=== PATIENT | male | born 1980 | race Caucasian/White ===

== ENCOUNTER 2019-03-03 08:46 | Emergency (ER) | payer MEDICAID, SELFPAY ==
[2019-03-03] VITALS (58 sets, daily range): BP systolic 107–168; BP diastolic 62–97; PULSE 42–94; RESP 12–57; TEMP 36.8–37.2; O2SAT 96–100
--- NOTE | 2019-03-03 09:11 | ED.GENADUL_ITS ---
Discharge Plan Disposition Patient Disposition: [facility] Discharge Details Chief Complaint: GenMedical Clinical Impression: Chest pain, Headache, Elevated troponin Primary Care Provider: None,None ED Provider: Dl Fonseca Home Meds and New Rx's Prescriptions: No Action No Known Home Meds RF: 0 Medical Decision Making This is a nontoxic-appearing 38-year-old male presenting to the emergency department with the above chief complaint. Symptoms seem to have started immediately after he lacerated his right index finger. Finger appears well intact and laceration is very superficial. Outside of laceration repair window at this time. Shortly after my evaluation patient developed nausea and vomiting. IV established and labs sent. He is complaining of intermittent chest pain therefore ACS work-up warranted. He is PERC negative at this time with a heart rate of 76, no calf tenderness, no cancer or VTE history. No recent surgeries or prolonged immobilization. 11:10 Patient's work-up so far has revealed an elevated troponin at 0.07. He does not endorse any chest pain at this time. He did have several bouts of chest pain earlier this morning and last night. EKG shows frequent PVCs concerning for bigeminy. No ST elevation and is negative for scar Bosa criteria. He does have a slightly elevated white blood cell count at 13,000. D-dimer is undetectable however with his shortness of breath symptoms and slightly elevated troponin I feel it necessary to proceed with CTA for PE rule out. Dissection also possibility although unlikely with his lack of chest pain symptoms and radiation. Chest x-ray is clean and shows no evidence of pneumonia or widened mediastinum. [id number] ultrasound today demonstrates adequate LV to RV ratio with no evidence of RV strain. No wall motion abnormalities noted. Lung windows demonstrate good bilateral slide without any evidence of B-lines. Patient's imaging today all negative for acute pathology. He continues to have intermittent bouts of severe substernal chest pain along with a headache. His repeat troponin is 0.07 and his EKG now shows questionable U waves in V3 and V4. No ST elevation noted. There is also evidence of hyperacute T waves in V3 V4. I [place] [facility] [place] EKGs as well. He agrees that with the ongoing chest discomfort and persistently elevated troponin the patient would benefit from a cardiology consultation. Patient has been accepted to the cardiology service with Dr Marie as the accepting physician. No recommendations for heparinization at this time. ECG Data Interpretation: Sinus rhythm with ventricular bigeminy. Negative for scar Bosa criteria with PVCs. No evidence of ST elevation or T wave inversion HPI General Date/Time Provider Initiated Documentation: 03/03/19 08:51 . HPI Narrative: Patient is a 38-year-old male with no significant past medical history who presents to the emergency department with generalized complaints of headache, nausea, vomiting with cough and shortness of breath. He reports intermittent chest pain since yesterday evening. He states that his symptoms started immediately after he lacerated his right index finger while working on a car with his [id number]. He developed severe lightheadedness and a wave of nausea after he lacerated his finger and is not felt back to his baseline since. He denies any fevers. Is been taking ibuprofen for his headache with little to no relief. No neck pain or stiffness. No rashes noted. He denies any shortness of breath or chest pain while lying in bed. He is a smoker and admits to a new nonproductive cough. Related Data Home Medications Medication Instructions Recorded Confirmed Unknown [No Known Home Meds] 03/03/19 03/03/19 Allergies Allergy/AdvReac Type Severity Reaction Status Date / Time No Known Allergies Allergy Unverified 03/03/19 08:56 General Stated Complaint: GenMedical VIPIN: 3 Review of Systems Constitutional Denies system reviewed and no additional complaints, except as docu, Denies anorexia, Reports chills, Denies fatigue, Denies fever(s), Reports headache(s), Denies lethargy, Reports night sweats and Denies weight loss ENT Denies vertigo, Denies dizziness, Reports headache(s) and Denies neck pain Cardiovascular Reports chest pain, Denies chest pain with activity, Denies syncope, Denies pedal edema, Denies edema, Denies leg ulcers, Denies leg edema, Reports lightheadedness, Denies palpitations, Denies dyspnea, Denies dyspnea on exertion and Denies orthopnea Respiratory Denies chest congestion, Denies hemoptysis, Reports pain with cough, Denies dyspnea, Denies dyspnea on exertion and Denies wheezing Gastrointestinal Denies abdominal pain, Denies diarrhea, Reports nausea and Reports vomiting Genitourinary Denies dysuria and Denies flank pain Musculoskeletal Denies muscle cramps, Denies neck pain, Denies numbness and Denies stiffness Integumentary/Breasts Denies erythema and Denies rash Neurologic Denies vertigo, Denies dizziness, Denies syncope, Reports headache(s) and Denies numbness Endocrine Denies fatigue and Denies palpitations Allergic/Immunologic Denies wheezing [facility] Social History Smoking/Tobacco Use Status: Current every day Tobacco Type: cigarettes Alcohol Intake: never Drug use: Occasionally Substance use type: marijuana Do you feel safe at home: Yes Do you feel safe in your relationship?: Yes Exam Const General: cooperative Orientation: alert and oriented x3 HENMT Head: normal to inspection Face and sinus: normal facial exam Mouth: oral mucosae normal Teeth and gingiva: poor dentition Throat: posterior oropharynx normal Eyes General: appearance normal, both eyes and all related structures Neck Neck: normal visual inspection, full ROM, no lymphadenopathy and no meningeal signs Chest Chest: normal inspection of the chest and normal palpation of entire chest wall Resp Effort & Inspection: normal respiratory effort Auscultation: clear to auscultation bilaterally Cardio Jugular venous pressure: no JVD Palpation: normal PMI Rate: regular rate Rhythm: abnormal rhythm with ectopic beats Heart Sounds: S1 normal and S2 normal Pulses: normal peripheral pulses GI Inspection: normal to inspection Palpation: soft Back/Spine/Pelvis Back: no CVA tenderness Skin General skin exam: no rashes or lesions noted Neuro General: alert, awake and oriented x3 Cranial Nerves: CN's II-XI intact bilaterally Speech: speech normal Gait: normal gait Extrem General: no clubbing, cyanosis or edema, no pedal edema and no calf tenderness Right upper extremity: hand Details: normal capillary refill, laceration (superficial laceration to the medial border of the right distal 2nd phalanx) and other Course Vital Signs Temperature 36.8 C 03/03/19 08:52 Pulse 72 03/03/19 08:52 Respiratory Rate 18 03/03/19 08:52 Blood Pressure 154/77 H 03/03/19 08:52 Pulse Oximetry 99 03/03/19 08:52 Temperature 36.8 C 03/03/19 08:52 Temperature Source Oral 03/03/19 08:52 Pulse 72 03/03/19 08:52 Respiratory Rate 18 03/03/19 08:59 Respiratory Effort Non-Labored 03/03/19 08:59 Respiratory Depth Normal 03/03/19 08:59 Respiratory Pattern Normal 03/03/19 08:59 Blood Pressure 154/77 H 03/03/19 08:52 Blood Pressure Position Supine 03/03/19 08:52 Pulse Oximetry 99 03/03/19 08:52 Oxygen Delivery Method Room Air 03/03/19 08:52 Oxygen Flow Rate 0 03/03/19 08:52 Pain Level 10 03/03/19 08:52
[2019-03-03] MEDS: Ondansetron 4 MG/2 ML VIAL IVP (09:31)
[2019-03-03] MEDS: Normal Saline 1,000 ML 1000 ML IV (09:31)
[2019-03-03] MEDS: Acetaminophen 500 MG TAB 1000 MG PO (09:32)
[2019-03-03] MEDS: MAGNESIUM SULFATE 2 GM/50 ML BAG IVPB (09:39)
[2019-03-03 09:43] LABS: Abs Immature Grans 0.03 k/cumm (0.0-0.09); Absolute Basophil Count 0.03 k/cumm (0.0-0.2); Absolute Eosinophil Count 0.07 k/cumm (0.0-0.7); Basophils % 0.2; Eosinophils % 0.5; HCT 46.5 % (40.0-50.0); HGB 16.5 g/dL (13.5-17.5); Immature Grans % 0.2; Mean Corp. HGB Concentration 35.5 g/dL (32.0-36.0); Mean Corpuscular Hemoglobin 31.7 pg (27.0-33.0); Mean Corpuscular Volume 89.3 fL (80-95); Mean Platelet Volume 9.9 fL (8.0-11.0); Monocytes % 6.5; Neutrophils % 81.6; Platelet Count 292 x1000/uL (130-400); RBC 5.21 m/cumm (4.50-6.00); RBC Distribution Width 11.9 % (11.8-14.1); White Blood Cell Count 13.85 k/cumm (4.4-10.8)
[2019-03-03 09:46] LABS: Absolute Lymphocyte Count 1.52 k/cumm (1.2-3.4)
--- NOTE | 2019-03-03 09:56 | DI.RAD_ITS ---
SYMPTOM/DIAGNOSIS: VOMITING, COUGH, CHEST JPAIN PORTABLE CHEST: 03/03 The heart is normal in size. The lungs are clear. The mediastinal structures and pleura appear intact. CONCLUSION: Normal portable chest.
[2019-03-03 10:01] LABS: ALT 25 U/L (12-78); AST 13 U/L (15-37); Albumin 4.4 g/dL (3.4-5.0); Alkaline Phosphatase 65 U/L (46-116); Anion Gap 13.1 mmol/L (3-11); BUN 13 mg/dL (7-18); Bilirubin, Total 0.4 mg/dL (0.2-1.0); CO2 22.9 mmol/L (21.0-32.0); CREATININE 1.06 mg/dL (0.70-1.30); Calcium 9.5 mg/dL (8.5-10.1); Chloride 105 mmol/L (98-107); Glucose 118 mg/dL (70-100); Magnesium 1.9 mg/dL (1.8-2.4); Potassium 3.5 mmol/L (3.5-5.1); Sodium 141 mmol/L (136-145)
[2019-03-03 10:03] LABS: Troponin I 0.07 ng/mL (0.00-0.06)
[2019-03-03] MEDS: Normal Saline 1,000 ML 125 ML IV (10:10)
--- NOTE | 2019-03-03 10:14 | DI.VRAD_ITS ---
EXAM: XR Chest, 1 View EXAM DATE/TIME: 03/03/2019 9:57 AM CLINICAL HISTORY: 38 years old, male; Cough and other: Vomitting; Chest pain TECHNIQUE: Imaging protocol: XR of the chest, 1 view. COMPARISON: No relevant prior studies available. FINDINGS: Lungs: Moderately hyperaerated lungs consistent with deep inspiratory effort vs significant reactive airway disease. Pleural space: Unremarkable. No pleural effusion. No pneumothorax. Heart/Mediastinum: Unremarkable. No cardiomegaly. Bones/joints: Unremarkable. IMPRESSION: Moderately hyperaerated lungs consistent with deep inspiratory effort vs significant reactive airway disease. Dictated and Authenticated by: Tiago Ventura MD. Ordering:KELLEY Lizama MD
[2019-03-03 10:33] LABS: NT-proBNP 485 pg/mL
[2019-03-03 10:39] LABS: D-Dimer 122 ng/mlFEU (<500)
[2019-03-03 10:40] LABS: INR 1.1 (0.9-1.1); PTT Activated 26.4 sec (21.0-31.4); Prothrombin Time 10.9 sec (9.3-11.0)
--- NOTE | 2019-03-03 10:48 | DI.CT_ITS ---
SYMPTOM/DIAGNOSIS: SUBSTERNAL CHEST PAIN, SOB, ELEVATED TROP CHEST CTA: 03/03 CT angiography was performed with multi slice acquisition and multi planar and 3D reconstruction. CT angiography of the chest was performed with intravenous infusion of cc's of Omnipaque 350. Images obtained through the upper abdomen are unremarkable. There is no evidence of pulmonary embolic disease. There is no evidence of thoracic aortic dissection or aneurysm. No mediastinal or hilar adenopathy seen. Tracheobronchial tree appears intact. No pleural effusion or pulmonary consolidation. CONCLUSION: Normal CTA chest.
--- NOTE | 2019-03-03 11:45 | DI.CT_ITS ---
SYMPTOM/DIAGNOSIS: WORSENING HEADACHE, VOMITING, ELEVATED TROP. CRANIAL CT (WITHOUT CONTRAST): 03/[address] was performed. The ventricular system is normal in appearance. There is no evidence of an intracranial mass lesion. There is no evidence of a subdural or epidural hematoma. No focal areas of decreased attenuation are seen. CONCLUSION: Normal noncontrast Cranial CT. CERVICAL CRANIAL CTA: 03/03 CT angiography was performed with multi slice acquisition and multi planar and 3D reconstruction. CT angiography of the neck and head was performed with bolus infusion of 100 cc's of Omnipaque 350. The visualized aortic arch and great vessels are unremarkable. There is normal appearance of the common carotid arteries bilaterally with no evidence of stenosis or aneurysm. Internal and external carotid arteries appear normal bilaterally with no evidence of stenosis or aneurysm formation. No cervical mass or adenopathy is seen. Tracheal laryngeal structures appear intact. Intracranial internal carotid arteries appear normal bilaterally with no evidence of aneurysm or stenosis. Anterior cerebral, middle cerebral and posterior cerebral arteries and major branches are unremarkable bilaterally with no evidence of aneurysm or stenosis. CONCLUSION: Negative CT angiography neck and head.
[2019-03-03] MEDS: Omnipaque 350 MG/ML 100 ML BTL IJ ×2 (12:23→12:24)
[2019-03-03] MEDS: Omnipaque 350 MG/ML 50 ML BTL IJ (12:25)
--- NOTE | 2019-03-03 12:29 | DI.VRAD_ITS ---
EXAM: CT Angiography Head Without And With Contrast EXAM DATE/TIME: 03/03/2019 11:48 AM CLINICAL HISTORY: 38 years old, male; Pain; Other: Vomitting, elevated trop; Headache TECHNIQUE: Imaging protocol: Computed tomographic angiography images of the head without and with intravenous contrast using CT angiography protocol. Coronal and sagittal reformatted images were created and reviewed. 3 mm axial, coronal and sagittal reconstructions were obtained. 7 mm coronal reconstructions were obtained. 3D rendering: MIP reconstructed images were created and reviewed. Radiation optimization: All CT scans at this facility use at least one of these dose optimization techniques: automated exposure control; mA and/or kV adjustment per patient size (includes targeted exams where dose is matched to clinical indication); or iterative reconstruction. COMPARISON: No relevant prior studies available. FINDINGS: Right internal carotid artery: Unremarkable. Intracranial segment is patent with no significant stenosis. No aneurysm. Right anterior cerebral artery: Unremarkable. No occlusion or significant stenosis. No aneurysm. Right middle cerebral artery: Unremarkable. No occlusion or significant stenosis. No aneurysm. Right posterior cerebral artery: Unremarkable. No occlusion or significant stenosis. No aneurysm. Right vertebral artery: Dominant right vertebral artery with patent left vertebral artery. Left internal carotid artery: Unremarkable. Intracranial segment is patent with no significant stenosis. No aneurysm. Left anterior cerebral artery: Unremarkable. No occlusion or significant stenosis. No aneurysm. Left middle cerebral artery: Unremarkable. No occlusion or significant stenosis. No aneurysm. Left posterior cerebral artery: Unremarkable. No occlusion or significant stenosis. No aneurysm. Left vertebral artery: Unremarkable. No occlusion or significant stenosis. No aneurysm. Basilar artery: Unremarkable. No occlusion or significant stenosis. No aneurysm. Other vasculature: No large vessel occlusion. HEAD: Brain: Unremarkable. No hemorrhage. No significant white matter disease. No edema. Ventricles: Normal. No ventriculomegaly. Bones/joints: Unremarkable. No acute fracture. Sinuses: Visualized sinuses are normal. No fluid levels. Mastoid air cells: Visualized mastoids are normal. No mastoid effusion. Soft tissues: Unremarkable. IMPRESSION: No large vessel occlusion. EXAM: CT Angiography Neck With Contrast EXAM DATE/TIME: 03/03/2019 11:48 AM CLINICAL HISTORY: 38 years old, male; Pain; Other: Vomitting, elevated trop; Headache TECHNIQUE: Imaging protocol: Axial computed tomographic angiography images of the neck with intravenous contrast using CT angiography protocol. Coronal and sagittal reformatted images were created and reviewed. 3D rendering: MIP reconstructed images were created and reviewed. COMPARISON: No relevant prior studies available. FINDINGS: VASCULATURE: Right common carotid artery: Unremarkable. No stenosis. No dissection or occlusion. Right internal carotid artery: No ICA stenosis by NASCET/SRU criteria. Right external carotid artery: Unremarkable. No occlusion or stenosis of the origin. Right vertebral artery: Dominant right vertebral artery with patent left vertebral artery. Left common carotid artery: Unremarkable. No stenosis. No dissection or occlusion. Left internal carotid artery: Unremarkable extracranial segment. No stenosis. No dissection or occlusion. Left external carotid artery: Unremarkable. No occlusion or stenosis of the origin. Left vertebral artery: Unremarkable. No stenosis. No dissection or occlusion. NECK: Bones/joints: No acute fracture. Soft tissues: Normal. No significant soft tissue swelling. IMPRESSION: 1. Dominant right vertebral artery with patent left vertebral artery. 2. No ICA stenosis by NASCET/SRU criteria. COMMENT: Reference per NASCET criteria for degree of stenosis: Mild: less than 50% stenosis. Moderate: 50-69% stenosis. Severe: 70-94% stenosis. Near occlusion: 95-99% stenosis. Dictated and Authenticated by: Tiago Ventura MD. Ordering:KELLEY Lizama MD
--- NOTE | 2019-03-03 12:31 | DI.VRAD_ITS ---
EXAM: CT Angiography Chest With Contrast EXAM DATE/TIME: 03/03/2019 10:50 AM CLINICAL HISTORY: 38 years old, male; Pain and abnormal findings; Abnormal diagnostic tests; Other: Elevated troponin; Shortness of breath; Sternal or substernal pain TECHNIQUE: Imaging protocol: Axial computed tomographic angiography images of the chest with intravenous contrast using CT angiography protocol. Coronal and sagittal reformatted images were created and reviewed. 3D rendering: MIP reconstructed images were created and reviewed. Contrast material: OMNIPAQUE;Contrast volume: 60 ml;Contrast route: LAC 18G IV; COMPARISON: SC XR PORTABLE CHEST AP 03/03/2019 9:57 AM FINDINGS: Pulmonary arteries: No pulmonary embolus or aortic dissection. Aorta: Unremarkable. No aortic aneurysm. No aortic dissection. Lungs: Unremarkable. No consolidation. No masses. Pleural space: Unremarkable. No pneumothorax. No pleural effusion. Heart: Unremarkable. No cardiomegaly. No pericardial effusion. Lymph nodes: Unremarkable. No enlarged lymph nodes. Bones/joints: Unremarkable. No acute fracture. Soft tissues: Unremarkable. Other findings: Examination is limited secondary to motion artifact. IMPRESSION: 1. Examination is limited secondary to motion artifact. 2. No pulmonary embolus or aortic dissection. Dictated and Authenticated by: Tiago Ventura MD. Ordering:KELLEY Lizama MD
[2019-03-03 13:22] LABS: Troponin I 0.07 ng/mL (0.00-0.06)
[2019-03-05 11:00] LABS: Lyme Ab w Rflx to Lyme Confirm Negative
[2019-03-07 01:09] LABS: Anaplasma phagocytophilum Negative (Negative); B. miyamotoi PCR Negative (Negative); Babesia divergens/MO-1 Negative (Negative); Babesia duncani Negative (Negative); Babesia microti Negative (Negative); Ehrlichia chaffeensis Negative (Negative); Ehrlichia ewingii/canis Negative (Negative); Ehrlichia muris eauclairensis Negative (Negative)
== END 2019-03-03 15:36 | disposition short-term general hospital (02) ==
PROVIDERS: Emergency Provider Physician Assistant
DX: R07.9 Chest pain, unspecified (principal); R51 Headache; R77.8 Other specified abnormalities of plasma proteins; F17.210 Nicotine dependence, cigarettes, uncomplicated
CPT/HCPCS: 36415; 70496; 70498; 71275; 80053; 87798; 93005; 96361; 96365; 96366; 96375; 96376; 99285; 71045; 83735; 83880; 84484; 85025; 85379; 85610; 85730; 86618; 93010; J2405; J3490; Q9967

== ENCOUNTER 2019-03-06 07:17 | Emergency (ER) | payer MEDICAID, SELFPAY ==
[2019-03-06 07:29] VITALS: BP 139/103; PULSE 65; RESP 16; TEMP 36.7; O2SAT 97
[2019-03-06] MEDS: Normal Saline 1,000 ML 1000 ML IV (07:45)
--- NOTE | 2019-03-06 07:50 | W.ED.GENAD ---
Discharge Plan Disposition Patient Disposition: HOME Condition: Improving Discharge Details Chief Complaint: Headache Clinical Impression: Headache Primary Care Provider: None,None ED Provider: Miriam Garcia Home Meds and New Rx's Prescriptions: Continued metoprolol succinate 25 mg Tablet Extended Release 24 Hr 25 mg PO DAILY RF: 0 tizanidine 2 mg Capsule 2 mg TID RF: 0 Discharge Instructions Instructions: General Headache (ED) Additional Instructions: Encourage hydration. Please use Tizanidine as prescribed for headache. You may add Tylenol and/or Ibuprofen to this. Bloodwork and imaging are reassuring here today. You have a follow up appointment with neurology at [facility] regarding your headaches on March 12 at 2:15PM, go to desk 3C. Appointment is with Dr. Pulliam. If you develop fevers/chills, increased pain, weakness, altered sensation, visual changes or other new/worsening symptos please seek care urgently once again. Discharge Data Discharge Date/Time-TO BE ENTERED AT DEPARTURE: 03/06/19 11:41 Medical Decision Making Patient is a 38 year old male presenting today with c/c of headache that woke him from sleep this morning. Pain has been waxing and waning since onset. On exam, he appears nontoxic. Speaking in full sentences. Neuro exam is intact. He is intermittently grimacing and states that pain is shooting up. Has pain over the right rastafarian on palpation. Denies jaw claudication with eating but states that he is having pain over this area at this time. Feels that GALE came on suddenly. Feels similar to previous GALE but more severe than typical. Plan for CT as I am concerned for possible bleed, will obtain labs, hydrate and treat with dexamethasone, compazine, toradol, benadryl. Patient was seen recently for similar complaint. At that time, patient was noted to have an elevated troponin which is obtained to the patient was endorsing some intermittent chest discomfort. EKG was concerning for bigeminy but no ST elevations are noted. Patient had leukocytosis. CTA was obtained to rule out PE. Patient was transferred to [facility] cardiology consultation. While there, patient underwent stress echo, patient was able to reach the maximum heart rate and symptoms did not change with this exertion. He was endorsing this headache that he is currently endorsing now. Conclusion of the stress echo is no evidence for ischemia and a diagnostic level of stress. At that time, patient was also endorsing severe headache similar to what he is experiencing at this time. Notes that at the time of discharge the patient's elevated troponin was secondary to a hypertensive emergency. Patient was started on metoprolol, reports his been taking his medications as prescribed. 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 Began on tizanidine and advised that after the initial 3 days he would take this as needed. Labs significant for WBC of 11.17, this is downtrending from [address] reviewed by radiologist as normal. Discussed with patient. He is feeling improved after IV Dexamethason, hydration, compazine, benadryl, toradol. Feels ready for discharge at this time. Cardiology, who was the admitting team at [facility] recently, recommended f/u with neurology in 2 weeks. Called neurology to ensure f/u appointment and get time for the patient. He is hydrating. Will go home ot rest. Will continue with Tizanidine as previously prescribed. He was given strict return precautions. All questions and concerns were addressed, he is in agreement iwth this plan. HPI General Mode of arrival: ambulatory. Date/Time Provider Initiated Documentation: 03/06/19 07:46. Limitations to Documentation: no limitations. Information obtained by: patient, family (Accompanied by significant other) and RN notes reviewed. HPI Narrative: Patient is a 38-year-old male presenting today with chief complaint of headache. He reports that headache began at 0330 this morning waking him from sleep. Reports that headache can wax and wane, indicates the right rastafarian is area of maximal discomfort. However, he reports the headache began initially at the base of his head, and his neck and then radiated upwards and around the head. Denies any fevers but did state that he felt sweaty upon awakening this morning. Took his Tizanidine a previously prescribed by neurology. He reports a headache is been waxing and waning since onset this morning. States that this is similar to GALE he had while recently at [facility] but that the pain is increased. Denies neck pain. No rash. Denies CP or SOB. Related Data Home Medications Medication Instructions Recorded Confirmed metoprolol succinate 25 mg PO DAILY 03/06/19 03/06/19 tizanidine 2 mg TID 03/06/19 03/06/19 Allergies Allergy/AdvReac Type Severity Reaction Status Date / Time No Known Allergies Allergy Unverified 03/03/19 08:56 General Stated Complaint: Headache VIPIN: 3 Review of Systems Constitutional Reports as per HPI, Denies chills, Reports fatigue, Denies fever(s), Denies frequent falls, Reports headache(s), Denies snoring and Denies weakness Eyes Reports as per HPI, Denies blurry vision, Denies change in vision and Reports photophobia ENT Denies vertigo, Reports headache(s) and Denies neck pain Cardiovascular Reports as per HPI, Denies chest pain, Denies lightheadedness, Denies radiating jaw, neck or arm pain, Denies dyspnea and Denies dyspnea on exertion Respiratory Reports as per HPI, Denies chest congestion, Denies cough, Denies dyspnea, Denies dyspnea on exertion, Denies snoring, Denies stridor and Denies wheezing Gastrointestinal Reports as per HPI, Denies abdominal pain, Denies change in bowel habits, Denies nausea and Denies vomiting Genitourinary Reports system reviewed and no additional complaints, except as docu (denies change in urinary habits) Musculoskeletal Reports as per HPI, Denies back pain, Denies myalgias, Denies muscle cramps, Denies neck pain and Denies numbness Integumentary/Breasts Reports as per HPI and Denies rash Neurologic Reports as per HPI, Denies abnormal movements, Denies abnormal speech, Denies behavioral changes, Denies confusion, Denies vertigo, Denies frequent falls, Reports headache(s), Denies focal weakness, Denies numbness, Denies sensory deficit and Denies weakness Psychiatric Denies behavioral changes and Denies confusion Endocrine Reports fatigue Allergic/Immunologic Denies wheezing [facility] Social History Smoking/Tobacco Use Status: Current every day Tobacco Type: cigarettes Alcohol Intake: never Drug use: Occasionally Substance use type: marijuana Do you feel safe at home: Yes Do you feel safe in your relationship?: Yes Exam Const General: cooperative, healthy appearing, uncomfortable, no acute distress, well developed and well groomed Nutritional Appearance: average body habitus and well nourished Orientation: alert, awake and oriented x3 HENMT Head: normal to inspection, no palpable skull fracture, normocephalic and atraumatic Ears: hearing grossly normal bilaterally, external ears normal and TM's normal bilaterally General nose exam: external nose normal Mouth: oral mucosae normal and moist mucous membranes Throat: posterior oropharynx normal Eyes General: appearance normal, both eyes and all related structures Alignment and Position: alignment normal Periorbital: periorbital findings normal Eyelids: eyelids normal Sclera: sclerae normal Cornea: corneas normal Pupils: PERRL EOM: EOM intact bilaterally Neck Neck: normal visual inspection, full ROM, no lymphadenopathy and no meningeal signs Resp Effort & Inspection: normal respiratory effort, able to speak in complete sentences and no respiratory distress Auscultation: clear to auscultation bilaterally, no rales, no rhonchi and no wheezes Cardio Rate: regular rate Rhythm: regular rhythm Heart Sounds: S1 normal and S2 normal GI Inspection: normal to inspection and non-distended Palpation: soft, no hepatosplenomegaly, not firm, no guarding, not rigid and nontender Percussion: normal to percussion Auscultation: normal bowel sounds Back/Spine/Pelvis Cervical Spine: normal cervical lordosis and cervical ROM normal Skin General skin exam: no rashes or lesions noted Neuro General: alert, awake and oriented x3 Cranial Nerves: CN's II-XI intact bilaterally Cognition: normal cognition Speech: speech normal Gait: normal gait Motor: muscle tone normal throughout, strength 5/5 throughout, no pronator drift, no movement abnormalities noted and no fasciculations Sensory Exam: no sensory deficits noted Coordination: [id number] test normal and [id number] test normal Extrem General: normal to inspection, normal capillary refill, no pedal edema and no calf tenderness Psych Appearance: grossly normal and well kempt Mental Status: mental status grossly normal Speech and Movement: speech and movement normal Course Vital Signs Temperature 36.7 C 03/06/19 07:29 Pulse 65 03/06/19 07:29 Respiratory Rate 16 03/06/19 07:29 Blood Pressure 139/103 H 03/06/19 07:29 Pulse Oximetry 97 03/06/19 07:29 Temperature 36.7 C 03/06/19 07:29 Temperature Source Skin 03/06/19 07:29 Pulse 65 03/06/19 07:29 Respiratory Rate 16 03/06/19 07:29 Blood Pressure 139/103 H 03/06/19 07:29 Blood Pressure Position Sitting 03/06/19 07:29 Pulse Oximetry 97 03/06/19 07:29 Oxygen Delivery Method Room Air 03/06/19 07:29 Oxygen Flow Rate 0 03/06/19 07:29
[2019-03-06 07:55] LABS: Abs Immature Grans 0.02 k/cumm (0.0-0.09); Absolute Basophil Count 0.04 k/cumm (0.0-0.2); Absolute Eosinophil Count 0.09 k/cumm (0.0-0.7); Absolute Lymphocyte Count 1.64 k/cumm (1.2-3.4); Absolute Monocyte Count 0.75 k/cumm (0.11-0.7); Basophils % 0.4; Eosinophils % 0.8; HCT 46.7 % (40.0-50.0); HGB 16.3 g/dL (13.5-17.5); Immature Grans % 0.2; Lymphocytes % 14.7; Mean Corp. HGB Concentration 34.9 g/dL (32.0-36.0); Mean Corpuscular Hemoglobin 31.2 pg (27.0-33.0); Mean Corpuscular Volume 89.3 fL (80-95); Mean Platelet Volume 9.7 fL (8.0-11.0); Monocytes % 6.7; Neutrophils % 77.2; Platelet Count 307 x1000/uL (130-400); RBC 5.23 m/cumm (4.50-6.00); White Blood Cell Count 11.17 k/cumm (4.4-10.8)
[2019-03-06 07:56] LABS: Absolute Neutrophil Count 8.62 k/cumm (1.2-6.7)
[2019-03-06] MEDS: Dexamethasone 10 MG/ML VIAL IVP (08:12)
[2019-03-06] MEDS: Ketorolac 30 MG/ML VIAL IVP (08:12)
[2019-03-06] MEDS: diphenhydrAMINE 50 MG/ML VIAL 25 MG IVP (08:12)
[2019-03-06] MEDS: Prochlorperazine 10 MG/2 ML VIAL IVP (08:12)
[2019-03-06 08:14] LABS: ALT 20 U/L (12-78); AST 13 U/L (15-37); Albumin 4.5 g/dL (3.4-5.0); Alkaline Phosphatase 60 U/L (46-116); Anion Gap 13.3 mmol/L (3-11); BUN 16 mg/dL (7-18); Bilirubin, Total 0.2 mg/dL (0.2-1.0); CO2 23.7 mmol/L (21.0-32.0); CREATININE 1.27 mg/dL (0.70-1.30); Calcium 9.6 mg/dL (8.5-10.1); Chloride 101 mmol/L (98-107); Glucose 152 mg/dL (70-100); Potassium 4.2 mmol/L (3.5-5.1); Sodium 138 mmol/L (136-145); Total Protein 8.2 g/dL (6.4-8.2)
[2019-03-06 08:21] LABS: INR 1.1 (0.9-1.1); Prothrombin Time 10.7 sec (9.3-11.0)
[2019-03-06 09:24] LABS: C-Reactive Protein < 0.05 mg/dL (0.0-0.3)
--- NOTE | 2019-03-06 10:22 | DI.CT_ITS ---
SYMPTOMS/DIAGNOSIS: HEADACHE NONCONTRAST HEAD CT: No intracranial hemorrhage, mass or infarct is seen. The ventricles are normal in size. There is a hypoplastic right maxillary sinus which is opacified. IMPRESSION: Right maxillary sinus disease. Otherwise negative.
[2019-03-06 11:20] VITALS: BP 136/88; PULSE 51; RESP 14; TEMP 37.1; O2SAT 99
[2019-03-06] MEDS: Normal Saline Flush 10 ML SYR IVP (11:51)
== END 2019-03-06 11:41 | disposition home or self-care (01) ==
PROVIDERS: Emergency Provider Physician Assistant
DX: R51 Headache (principal)
CPT/HCPCS: 36415; 80053; 96361; 96374; 96375; 99284; 70450; 85025; 85610; 86140; 99285; J0780; J1100; J1200; J1885

== ENCOUNTER 2023-05-22 14:59 | Emergency (ER) | payer OTHER, MEDICAID, SELFPAY ==
--- NOTE | 2023-05-22 15:00 | DI.RAD_ITS ---
Exam(s) XR KNEE RT 3V AP,LAT,STEPH EXAM: XR KNEE RT 3V AP,LAT,STEPH CLINICAL HISTORY: R medial knee, had metal FB, removed prior to arri. TECHNIQUE: 2D digital imaging was performed of the right knee. Three views obtained. AP, lateral an d PA tunnel views were obtained. COMPARISON: No exams were available for comparison FINDINGS: BONES: No acute fracture is present. No bony destructive lesion is seen. JOINTS: The knee is normally aligned. No joint effusion is seen. SOFT TISSUE: Normal. No radiopaque foreign body. IMPRESSION: Unremarkable radiographs of the right knee. No radiopaque foreign body. DATA REPOSITORY: RADIATION DOSE DELIVERED:
--- NOTE | 2023-05-22 15:05 | W.ED.GENAD ---
Discharge Plan Disposition Patient Disposition: Home Discharge Details Clinical Impression: Puncture wound of right lower extremity Primary Care Provider: None,None ED Provider: Nikolas Draper Home Meds and New Rx's Prescriptions: New cephalexin 500 mg tablet 500 mg PO QID 3 Days Qty: 12 0RF Continued metoprolol succinate 25 mg Tablet Extended Release 24 Hr 25 mg PO DAILY Hold Instructions: Pt Stopped/Never Started tizanidine 2 mg Capsule 2 mg TID Hold Instructions: Pt Stopped/Never Started Discharge Instructions Instructions: Cephalexin (By mouth), Puncture Wound (ED) Additional Instructions: You were seen in the emergency department for your right knee puncture wound. This did not appear to puncture the joint capsule and you have no bony involvement on your x-ray. Your ligaments appear stable on physical exam. Please treat aggressively with adequate dosing of Tylenol and ibuprofen as well as rest, ice, compression and elevation. Please use therapeutic dosing of Tylenol (acetamenophen) & Advil (ibuprofen) in an alternating fashion as follows: Take 1000mg of Tylenol every 6 hours without missing doses- that is 4 times per day. Senior Living in between the Tylenol dosings, take 400-600mg of Advil also on a 6 hour schedule, that is also 4 times per day. The daily maximum dosing of Tylenol is 4000mg, and the daily maximum dosing of Advil is 2400mg. This is safe to do for weeks. Please note that some common cold medications & prescription pain medications may contain acetamenophen and you need to read OTC drug labels and factor that in to maximum daily dosings. We have provided you crutches to aid in ambulation as well as aggressively cleaned your puncture wounds and provided you with some bandages. I have sent prescriptions to the [place] [facility] in [place] for 3 days of prophylactic antibiotics. Please follow-up with orthopedics for pain persisting past 5 to 7 days for further evaluation of the ligamentous structures, return to the emergency department for any significant increase in redness to the area with drainage of pus, inability to ambulate, fever or nausea. Referrals: [facility] [Provider Group] Medical Decision Making This dictation utilizes [id number] dictation software and may contain unedited grammatical errors. 42 y/o M presents to ED today with a chief complaint of R medial knee puncture wound from a framing nail gun. Onset and characteristics include three pinpoint punctures from the nail entering and exiting the skin of his medial knee, appears to have been a glancing blow. Patient has relevant history non-contributory. Family and social history: non-contributory. Pertinent exam findings / vital signs include three pinpoint superficial puncture wounds to medial aspect of R knee without serous drainage of synovial fluid, able to weight-bear, injury to non-dominant extremity. Differential / pathologies of concern include perforation of joint space, need for tetanus prophylaxis, rupture of MCL, fracture of bone of knee. Diagnostic studies of: -XR R Knee. -shows no radiopaque FB, no fracture or bony involvement Interventions of: -Aggressive cleaning of his small puncture wounds, provided crutches as the patient has pain with weightbearing, updated Tdap status. Findings not consistent with active infection of recent puncture wounds, not consistent with joint capsule perforation without serous synovial drainage, not consistent with MCL injury with no ligamentous laxity. Disposition of Puncture Wound of Right Lower Extremity. Assessment/Plan: Counseled the patient on therapeutic dosing of Tylenol and ibuprofen for pain as well as RICE therapy and provided him a prophylactic course of Keflex to prevent infection. I counseled him on keeping the area clean and covered with sterile dressing. I advised he follow-up with orthopedics for any significant pain and ambulation deficits past 5 to 7 days for further evaluation of ligamentous structures of the right knee. Patient verbalized understanding of the plan and return to ED criteria and engaged in shared decision making. Medical Records Medical records reviewed: Yes I reviewed the patient's medical records. Imaging Data Radiologic Study: Attestation: I personally reviewed and interpreted this imaging study as follows: Imaging: X-Ray My impression: no acute bony involvement Radiologist's impression: EXAM: XR KNEE RT 3V AP,LAT,STEPH CLINICAL HISTORY: R medial knee, had metal FB, removed prior to arri. TECHNIQUE: 2D digital imaging was performed of the right knee. Three views obtained. AP, lateral and PA tunnel views were obtained. COMPARISON: No exams were available for comparison FINDINGS: BONES: No acute fracture is present. No bony destructive lesion is seen. JOINTS: The knee is normally aligned. No joint effusion is seen. SOFT TISSUE: Normal. No radiopaque foreign body. IMPRESSION: Unremarkable radiographs of the right knee. No radiopaque foreign body. HPI General Date/Time Provider Initiated Documentation: 05/22/23 15:04. HPI Narrative: 42 year-old L-hand dominant male presents to ED today by POV/ambulating with a chief complaint of puncture wound from a framing nail gun to his R medial knee, [place] just [place] to arrival. Quality described as mild pain, no radiation to foreign body sensation, inability to weight-bear, active bleeding, serous gross drainage from the area. Severity is described as 4-5/10. Palliating factors include nothing specific attempted. Provoking factors include nothing specific. Events leading up to the incident/Associated Symptoms: Patient is unsure of his last Tdap update. Patient not anticoagulated. Related Data Home Medications Medication Instructions Recorded Confirmed metoprolol succinate 25 mg 25 mg PO DAILY 03/06/19 05/22/23 tablet,extended release 24 hr tizanidine 2 mg capsule 2 mg TID 03/06/19 03/06/19 cephalexin 500 mg tablet 500 mg PO QID prophylaxis 3 days 05/22/23 #12 tabs Previous Rx's Medication Instructions Recorded cephalexin 500 mg tablet 500 mg PO QID prophylaxis 3 days 05/22/23 #12 tabs Allergies Allergy/AdvReac Type Severity Reaction Status Date / Time No Known Allergies Allergy Unverified 05/22/23 15:12 General VIPIN: 3 Review of Systems All systems reviewed & are unremarkable except as noted in HPI and below PFSH All Active Problems (Updated 05/22/23 @ 16:27 by DINA Savage) Puncture wound of right lower extremity (Acute) Social History Smoking/Tobacco Use Status: Current every day Tobacco Type: cigarettes Smoking risk assessment performed?: Yes Alcohol Intake: never Drug use: Occasionally Substance use type: marijuana Do you feel safe at home: Yes Do you feel safe in your relationship?: Yes Exam Narrative Exam Narrative: GENERAL APPEARANCE: Well-nourished, non-toxic, awake and alert, atraumatic, no acute distress. SKIN: Warm, pink, dry, intact, without rashes/lesions/ulcerations. HEAD: Normocephalic, atraumatic, normal hair distribution for gender/age. EYES: Pupils PERRLA, EOMs intact without nystagmus, normal conjunctiva, no exudates on lids/lashes. ENT: Nares patent, no circumoral cyanosis, no facial swelling NECK: Supple, trachea midline, painless cervical ROM. LUNGS/CHEST: Non-labored respirations, normal A/P diameter, symmetrical expansion, no chest wall deformity HEART (CV/PV): Regular rate and rhythm, no peripheral edema, no JVD. ABDOMEN: Soft, non-distended, no guarding. MSK: Normal ROM, no swelling/deformity to bilateral UEs or LEs, moving all extremities without weakness, no cyanosis, spine midline without tenderness, normal curvature. R LE: 3 pinpoint 0.1 cm puncture wounds to the medial aspect of the right knee with scant dried blood and no serous drainage of synovial fluid, no foreign body visualized, no erythema, able to bear weight, no crepitus to palpation, no ligamentous laxity with varus valgus forces, Vignesh negative, Jason negative NEURO: Mental Status AAOx4 - alert to person, place, time, events No facial droop, no forehead involvement. Motor: No focal weakness - strength 5/5 in bilateral UEs and LEs, proximal and distal, symmetric. Sensory: sensation intact to light touch globally. Gait normal: patient ambulated without ataxia into ED room. PSYCH: euthymic, cooperative, pleasant, appropriate speech
[2023-05-22 15:07] VITALS: BP 158/79; PULSE 62; RESP 20; TEMP 36.8; O2SAT 99
== END 2023-05-22 17:00 | disposition home or self-care (01) ==
PROVIDERS: Emergency Provider Physician Assistant
DX: S81.031A Puncture wound without foreign body, right knee, initial encounter (principal); W29.4XXA Contact with nail gun, initial encounter; Y99.0 Civilian activity done for income or pay
CPT/HCPCS: 73562; 90471; 99284

== ENCOUNTER 2025-06-19 17:49 | Emergency (ER) | payer OTHER, SELFPAY ==
[2025-06-19 17:53] VITALS: BP 150/86; PULSE 65; RESP 18; TEMP 36.3; O2SAT 99
--- NOTE | 2025-06-19 18:10 | W.ED.GENAD ---
Discharge Plan Disposition Patient Disposition: Home Condition: Stable Discharge Details Clinical Impression: Dental infection Primary Care Provider: None,None ED Provider: Myriam Tsang Home Meds and New Rx's Prescriptions: New clindamycin HCl 150 mg capsule 450 mg PO TID 7 Days Qty: 63 0RF No Action metoprolol succinate 25 mg Tablet Extended Release 24 Hr 25 mg PO DAILY tizanidine 2 mg Capsule 2 mg TID Discharge Instructions Instructions: Dental Pain ED Additional Instructions: You do still need to see a dentist. Please take the medications as directed, gargle with warm salt water and swish and spit three times daily for the next few days. Take the antibiotic with yogurt or a probiotic. Use the HurriCaine gel up to 3 times daily to the most painful areas. Please take Tylenol or Ibuprofen with food every 4-6 hours as needed for pain and swelling. You were placed on a care management list to assist you in establishing care with a primary care provider. They should call you to help you set that up. Stand Alone Forms: Portal Information HPI General Mode of arrival: ambulatory. Date/Time Provider Initiated Documentation: 06/19/25 17:50. Limitations to Documentation: no limitations. Information obtained by: patient. HPI Narrative: 44-year-old male presents to the ER with a chief complaint of left lower jaw dental pain which has been ongoing for the last 2 days with some left lower jaw swelling. Denies any fever trouble swallowing or any other associated symptoms. He does have very poor dentition and is a smoker. He does have receding gums noted around his teeth. Has not been on antibiotics in last 2 to 3 months, does not have a dentist. He does take metoprolol. Related Data Home Medications ?Medication ?Instructions ?Recorded ?Confirmed metoprolol succinate 25 mg 25 mg PO DAILY 03/06/19 06/19/25 tablet,extended release 24 hr Held on 06/19/25. Instructions: Pt Stopped/Never Started tizanidine 2 mg capsule 2 mg TID 03/06/19 03/06/19 Held on 06/19/25. Instructions: Pt Stopped/Never Started clindamycin HCl 150 mg capsule 450 mg (3 x 150 mg) PO TID 7 days 06/19/25 #63 caps Previous Rx's ?Medication ?Instructions ?Recorded clindamycin HCl 150 mg capsule 450 mg (3 x 150 mg) PO TID 7 days 06/19/25 #63 caps Allergies Allergy/AdvReac Type Severity Reaction Status Date / Time No Known Allergies Allergy Verified 06/19/25 17:55 General Stated Complaint: DentalOral VIPIN: 4 Review of Systems ENT Ears, Nose, Mouth, and Throat: Reports dental pain and Reports facial pain Exam [facility] Face images:  1. Area of swelling noted no induration or erythema Teeth and gingiva: gingiva abnormal diffusely erythematous, receding and discolored and poor dentition Teeth image:  1. Dental caries with receding gingiva at the bases 2. Dental caries with receding gingiva at the bases Throat: posterior oropharynx normal Resp Effort & Inspection: normal respiratory effort and able to speak in complete sentences Auscultation: clear to auscultation bilaterally Cardio Rate: regular rate Rhythm: regular rhythm Heart Sounds: S1 normal and S2 normal Course Vital Signs Vital signs: Vital Signs Temperature 36.3 C L 06/19/25 17:53 Pulse 65 06/19/25 17:53 Respiratory Rate 18 06/19/25 17:53 Blood Pressure 150/86 H 06/19/25 17:53 Pulse Oximetry 99 06/19/25 17:53 Temperature 36.3 C L 06/19/25 17:53 Temperature Source Tympanic 06/19/25 17:53 Pulse 65 06/19/25 17:53 Respiratory Rate 18 06/19/25 17:53 Blood Pressure 150/86 H 06/19/25 17:53 Blood Pressure Position Sitting 06/19/25 17:53 Pulse Oximetry 99 06/19/25 17:53 Oxygen Delivery Method Room Air 06/19/25 17:53 Oxygen Flow Rate 0 06/19/25 17:53 Pain Level 8 06/19/25 17:53 Medical Decision Making Very poor dentition with receding of gingival around teeth number 23 and 21 left lower jaw swelling noted. Patient does not have a dentist. Will give him clindamycin with clindamycin to go and Trung styles. He has been taking Tylenol and ibuprofen with little to no relief. No evidence of fluctuance or drainable abscess noted. Patient discharged with instructions given dental resources. Placed on care management for primary care provider establishment. [facility] All Active Problems (Updated 06/19/25 @ 18:12 by Myriam Tsang NP) Dental infection (Acute) Social History Smoking/Tobacco Use Status: Current every day Tobacco Type: cigarettes Smoking risk assessment performed?: Yes Alcohol Intake: never Drug use: Occasionally Substance use type: marijuana Do you feel safe at home: Yes Do you feel safe in your relationship?: Yes
[2025-06-19 18:32] VITALS: BP 150/86; PULSE 65; RESP 18; TEMP 36.3; O2SAT 99
[2025-06-19] MEDS: Benzocaine 20% Gel 30 GM JAR MM (18:36)
[2025-06-19] MEDS: Clindamycin 150 MG CAP 450 MG PO (18:36)
[2025-06-19] MEDS: Clindamycin 150 MG CAP, 12 CAPS/BTL 450 MG PO (18:36)
== END 2025-06-19 18:34 | disposition home or self-care (01) ==
LOC: ER 18:31
PROVIDERS: Emergency Provider Registered Nurse Emergency
DX: R68.84 Jaw pain (principal); K04.7 Periapical abscess without sinus
CPT/HCPCS: 99283